=== PATIENT | female | born 1960 | race African-American/Black ===

== ENCOUNTER 2018-06-22 23:20 | Emergency (ER) | payer OTHER ==
[~2018-06-22] VITALS: Ht 162.6 cm; Wt 70.5 kg
[~2018-06-22 23:20] MED LIST: ALBU17AE2 IH; ALPR0.5T8 PO; AMLO-512 PO; ASPI-556 PO; HYDR25TA PO; PERCT10 PO
[2018-06-22] MEDS ORDERED: LORA0.5T2 PO (23:50)
[2018-06-23] MEDS ORDERED: IPRATROPIUM BROMIDE 0.5 MG/2.5 ML NEB SOLUTION NEB ONE (02:45)
[2018-06-23] MEDS ORDERED: ALBUTEROL SULFATE 2.5 MG/0.5 ML NEB SOLUTION NEB ONE (02:45)
[2018-06-23] MEDS ORDERED: LORazepam 1 MG TABLET PO ONE (02:45)
[2018-06-23] MEDS ORDERED: AZITHROMYCIN 250 MG TABLET PO ONE (03:30)
[2018-06-23 04:53] VITALS: BP 111/73
== END 2018-06-23 05:35 | disposition home or self-care (01) ==
LOC: EMS 23:22
DX: J44.9 Chronic obstructive pulmonary disease, unspecified (principal); F41.9 Anxiety disorder, unspecified; I10 Essential (primary) hypertension; E78.00 Pure hypercholesterolemia, unspecified; Z88.0 Allergy status to penicillin; Z79.899 Other long term (current) drug therapy; Z79.82 Long term (current) use of aspirin
CPT/HCPCS: 94640

== ENCOUNTER 2019-02-17 05:40 | Emergency (ER) | payer OTHER ==
[~2019-02-17] VITALS: Ht 162.6 cm; Wt 81.8 kg
[~2019-02-17 05:40] MED LIST changes: -ALPR0.5T8 PO; -AMLO-512 PO; +AMLO10TA7 PO; +LORA-999 PO; +OXYC-601 PO; -PERCT10 PO
[2019-02-17] MEDS ORDERED: OxyCODONE HCL/ACETAMINOPHEN 5-325 MG TABLET PO ONE (07:15)
[2019-02-17 10:01] VITALS: BP 115/70
== END 2019-02-17 10:10 | disposition home or self-care (01) ==
LOC: EMS 05:40
DX: S20.211A Contusion of right front wall of thorax, initial encounter (principal); E78.00 Pure hypercholesterolemia, unspecified; G43.909 Migraine, unspecified, not intractable, without status migrainosus; I10 Essential (primary) hypertension; J44.9 Chronic obstructive pulmonary disease, unspecified; F17.210 Nicotine dependence, cigarettes, uncomplicated; Z86.73 Personal history of transient ischemic attack (TIA), and cerebral infarction without residual deficits; Z98.890 Other specified postprocedural states; Z79.899 Other long term (current) drug therapy; Z88.0 Allergy status to penicillin; Z79.82 Long term (current) use of aspirin; Z88.6 Allergy status to analgesic agent; W18.39XA Other fall on same level, initial encounter; Y93.89 Activity, other specified; Y92.89 Other specified places as the place of occurrence of the external cause; Y99.8 Other external cause status
CPT/HCPCS: 71101; 99406